=== PATIENT | male | born 1945 | race Caucasian/White ===

== ENCOUNTER 2016-09-20 08:00 | Outpatient (CLI) | payer MEDICARE, OTHER | END 2016-09-20 08:01 | disposition home or self-care (01) | DX: I48.91 Unspecified atrial fibrillation (principal); Z79.01 Long term (current) use of anticoagulants ==

== ENCOUNTER 2016-10-07 08:00 | Outpatient (CLI) | payer MEDICARE, OTHER | END 2016-10-07 08:01 | disposition home or self-care (01) | DX: E11.9 Type 2 diabetes mellitus without complications (principal) ==

== ENCOUNTER 2016-10-29 11:00 | Outpatient (CLI) | payer MEDICARE, OTHER | END 2016-10-29 11:01 | disposition home or self-care (01) | DX: I48.91 Unspecified atrial fibrillation (principal); Z79.01 Long term (current) use of anticoagulants ==

== ENCOUNTER 2016-11-25 14:39 | Outpatient (CLI) | payer MEDICARE, OTHER | END 2016-11-25 14:40 | disposition home or self-care (01) | DX: I48.91 Unspecified atrial fibrillation (principal); Z79.01 Long term (current) use of anticoagulants ==

== ENCOUNTER 2016-12-23 08:00 | Outpatient (CLI) | payer MEDICARE, OTHER | END 2016-12-23 08:01 | disposition home or self-care (01) | DX: I48.91 Unspecified atrial fibrillation (principal); Z79.01 Long term (current) use of anticoagulants ==

== ENCOUNTER 2017-01-20 08:00 | Outpatient (CLI) | payer MEDICARE, OTHER | END 2017-01-20 23:59 | LOC: LAB.N 08:00 | PROVIDERS: ATTEND Internal Medicine | DX: I48.91 Unspecified atrial fibrillation (principal); Z79.01 Long term (current) use of anticoagulants | CPT/HCPCS: 85610 ==

== ENCOUNTER 2017-02-17 13:55 | Outpatient (CLI) | payer MEDICARE, OTHER | END 2017-02-17 13:56 | LOC: LAB.N 13:55 | PROVIDERS: ATTEND Internal Medicine | DX: I48.91 Unspecified atrial fibrillation (principal) | CPT/HCPCS: 85610 ==

== ENCOUNTER 2017-03-17 08:00 | Outpatient (CLI) | payer MEDICARE, OTHER | END 2017-03-17 08:01 | LOC: LAB.N 08:00 | PROVIDERS: ATTEND Internal Medicine | DX: I48.91 Unspecified atrial fibrillation (principal) | CPT/HCPCS: 85610 ==

== ENCOUNTER 2017-04-18 08:00 | Outpatient (CLI) | payer MEDICARE, OTHER ==
[2017-04-18 20:09] LABS: HEMOGLOBIN A1C 0.84 g/dL
== END 2017-04-18 08:01 | disposition home or self-care (01) ==
LOC: LAB.N 08:00
PROVIDERS: ATTEND Internal Medicine
DX: I48.91 Unspecified atrial fibrillation (principal)
CPT/HCPCS: 36415; 83036; 85610

== ENCOUNTER 2017-05-20 08:00 | Outpatient (CLI) | payer MEDICARE, OTHER | END 2017-05-20 08:01 | disposition home or self-care (01) | LOC: LAB.N 08:00 | PROVIDERS: ATTEND Internal Medicine | DX: I48.91 Unspecified atrial fibrillation (principal); Z79.01 Long term (current) use of anticoagulants | CPT/HCPCS: 85610 ==

== ENCOUNTER 2017-06-09 13:31 | Outpatient (CLI) | payer MEDICARE, OTHER | END 2017-06-09 13:32 | LOC: LAB.N 13:31 | PROVIDERS: ATTEND Internal Medicine | DX: I48.91 Unspecified atrial fibrillation (principal); Z79.01 Long term (current) use of anticoagulants | CPT/HCPCS: 85610 ==

== ENCOUNTER 2017-06-23 11:56 | Outpatient (CLI) | payer MEDICARE, OTHER ==
[2017-06-23 12:32] LABS: ALBUMIN/GLOBULIN RATIO 1.3 (1.0-2.2); BILIRUBIN,TOTAL 1.5 mg/dL (0.2-1.0); BUN - BLOOD UREA NITROGEN 17 mg/dL (6-20); CALCIUM 9.4 mg/dL (8.5-10.3); CARBON DIOXIDE - CO2 26 mmol/L (21-32); CHLORIDE 95 mmol/L (101-111); CREATININE 0.9 mg/dL (0.6-1.2); GFR - MDRD 83 (>89); GLUCOSE 142 mg/dL (70-100); POTASSIUM 3.6 mmol/L (3.5-5.0); SODIUM 133 mmol/L (135-145); TOTAL PROTEIN 7.7 g/dL (6.7-8.2)
[2017-06-23 12:38] LABS: PT - PROTHROMBIN TIME 23.1 secs (9.9-12.6)
--- NOTE | 2017-06-23 14:34 | CT Report ---
CT BRAIN WITHOUT CONTRAST: 06/23/2017 CLINICAL INDICATION: Headache, anticoagulation therapy. COMPARISON: 05/10/2013 TECHNIQUE: Axial CT images of the brain were obtained without intravenous contrast. FINDINGS: The ventricles and sulci demonstrate mild symmetric enlargement, compatible with atrophy. The basilar cisterns are patent. There is no evidence of intracranial hemorrhage, mass effect, or m idline shift. The visualized orbital contents and paranasal sinuses are unremarkable. IMPRESSION: MILD ATROPHY. NO EVIDENCE OF HEMORRHAGE OR MASS EFFECT. In accordance with CT protocol optimization, one or more of the following dose reduction techniques w ere utilized for this exam: automated exposure control, adjustment of mA and/or KV based on patient size, or use of iterative reconstructive technique. JOB #: [id number] EXT JOB #:[id number]
== END 2017-06-23 11:57 | disposition home or self-care (01) ==
LOC: DI 11:56
PROVIDERS: ATTEND Physician Assistant Medical
DX: G31.9 Degenerative disease of nervous system, unspecified (principal); R51 Headache; Z79.01 Long term (current) use of anticoagulants
CPT/HCPCS: 36415; 70450; 80053; 85610; 85651; 86140

== ENCOUNTER 2017-08-16 08:00 | Outpatient (CLI) | payer MEDICARE, OTHER | END 2017-08-16 08:01 | disposition home or self-care (01) | LOC: LAB.N 08:00 | PROVIDERS: ATTEND Internal Medicine | DX: E78.5 Hyperlipidemia, unspecified (principal); I48.91 Unspecified atrial fibrillation | CPT/HCPCS: 85610 ==

== ENCOUNTER 2017-08-16 10:05 | Outpatient (CLI) | payer MEDICARE, OTHER | END 2017-08-16 10:06 | disposition home or self-care (01) | LOC: SC 10:05 | PROVIDERS: ATTEND Internal Medicine Pulmonary Disease | DX: G47.33 Obstructive sleep apnea (adult) (pediatric) (principal); I48.91 Unspecified atrial fibrillation; E78.5 Hyperlipidemia, unspecified | CPT/HCPCS: 85610; 99213; G0463; 99212 ==

== ENCOUNTER 2017-08-17 14:14 | Outpatient (CLI) | payer MEDICARE, OTHER ==
[2017-08-17 13:57] LABS: BASOPHILS # (AUTO) 0.1 10^3/uL (0.0-0.1); BASOPHILS % (AUTO) 1.2 %; EOSINOPHILS % (AUTO) 0.5 %; HCT - HEMATOCRIT 43.9 % (42.0-52.0); HGB - HEMOGLOBIN 14.9 g/dL (14.0-18.0); LYMPHOCYTES # (AUTO) 2.1 10^3/uL (1.5-3.5); MEAN CORPUSCULAR HEMOGLOBIN 30.8 pg (27.0-31.0); MEAN CORPUSCULAR VOLUME 90.6 fL (80.0-94.0); MEAN PLATELET VOLUME 8.7 fL (7.4-11.4); MONOCYTES # (AUTO) 0.7 10^3/uL (0.0-1.0); MONOCYTES % (AUTO) 11.3 %; NEUTROPHILS # (AUTO) 3.5 10^3/uL (1.5-6.6); NUCLEATED RED BLOOD CELLS AUTO 0.1 /100WBC; RED BLOOD COUNT 4.85 10^6/uL (4.70-6.10); RED CELL DISTRIBUTION WIDTH 13.9 % (12.0-15.0); UNCORRECTED WHITE BLOOD COUNT 6.4 x10^3/uL; WHITE BLOOD COUNT 6.4 x10^3/uL (4.8-10.8)
[2017-08-17 14:19] LABS: HEMOGLOBIN A1C 0.85 g/dL
[2017-08-17 16:27] LABS: CHOL/HDL RATIO 2.3 (<5.0); CHOLESTEROL 135 mg/dL; HDL CHOLESTEROL 60 mg/dL; TRIGLYCERIDES 71 mg/dL; URIC ACID 6.1 mg/dL (2.6-7.2); VLDL CHOLESTEROL 14 mg/dL
== END 2017-08-17 14:15 | disposition home or self-care (01) ==
LOC: LAB.N 14:14
PROVIDERS: ATTEND Internal Medicine
DX: M10.9 Gout, unspecified (principal); E78.5 Hyperlipidemia, unspecified; E11.9 Type 2 diabetes mellitus without complications
CPT/HCPCS: 36415; 80061; 83036; 84550; 85025; 85651; 86140

== ENCOUNTER 2017-09-19 09:22 | Outpatient (CLI) | payer MEDICARE, OTHER | END 2017-09-19 09:23 | disposition home or self-care (01) | LOC: SC 09:22 | PROVIDERS: ATTEND Internal Medicine Pulmonary Disease | DX: G47.33 Obstructive sleep apnea (adult) (pediatric) (principal); I48.91 Unspecified atrial fibrillation; Z79.01 Long term (current) use of anticoagulants | CPT/HCPCS: 99213; G0463; 85610; 99212 ==

== ENCOUNTER 2017-09-19 10:38 | Outpatient (CLI) | payer MEDICARE, OTHER | END 2017-09-19 10:39 | disposition home or self-care (01) | LOC: LAB.N 10:38 | PROVIDERS: ATTEND Internal Medicine | DX: I48.91 Unspecified atrial fibrillation (principal); Z79.01 Long term (current) use of anticoagulants | CPT/HCPCS: 85610 ==

== ENCOUNTER 2017-10-03 10:53 | Outpatient (CLI) | payer MEDICARE, OTHER | END 2017-10-03 10:54 | disposition home or self-care (01) | LOC: LAB.N 10:53 | PROVIDERS: ATTEND Internal Medicine | DX: I48.91 Unspecified atrial fibrillation (principal); Z79.01 Long term (current) use of anticoagulants | CPT/HCPCS: 85610 ==

== ENCOUNTER 2017-11-03 14:57 | Outpatient (CLI) | payer MEDICARE, OTHER | END 2017-11-03 14:58 | disposition home or self-care (01) | LOC: LAB.N 14:57 | PROVIDERS: ATTEND Internal Medicine | DX: I48.91 Unspecified atrial fibrillation (principal); Z79.01 Long term (current) use of anticoagulants | CPT/HCPCS: 85610 ==

== ENCOUNTER 2017-12-08 08:00 | Outpatient (CLI) | payer MEDICARE, OTHER ==
[2017-12-08 19:26] LABS: HEMOGLOBIN A1C 0.83 g/dL; HEMOGLOBIN A1C % 6.9 % (4.6-6.2)
== END 2017-12-08 08:01 ==
LOC: LAB.N 08:00
PROVIDERS: ATTEND Internal Medicine
DX: E11.9 Type 2 diabetes mellitus without complications (principal)
CPT/HCPCS: 36415; 83036

== ENCOUNTER 2017-12-12 23:16 | Outpatient (CLI) | payer MEDICARE, OTHER | END 2017-12-12 23:17 | disposition home or self-care (01) | LOC: LAB.N 23:16 | PROVIDERS: ATTEND Internal Medicine | DX: I48.91 Unspecified atrial fibrillation (principal); Z79.01 Long term (current) use of anticoagulants | CPT/HCPCS: 85610 ==

== ENCOUNTER 2017-12-19 07:30 | Outpatient (CLI) | payer MEDICARE, OTHER ==
[2017-12-19] MEDS ORDERED: IOPAMIDOL-300 50 ML VIAL ONE (07:45)
[2017-12-19] MEDS ORDERED: IOPAMIDOL-300 100 ML VIAL ONE (07:45)
[2017-12-19 08:05] LABS: CREATININE 0.9 mg/dL (0.6-1.2)
--- NOTE | 2017-12-19 11:44 | CT Report ---
CT OF ABDOMEN AND PELVIS WITH CONTRAST: 12/19/2017 CLINICAL INDICATION: Left-sided pain, history of hernia repair. COMPARISON: 08/10/2016. TECHNIQUE: Axial CT images of the abdomen and pelvis were obtained with 100 mL Isovue 300 intravenously as well as oral contrast. FINDINGS: Limited evaluation of the lung bases demonstrates stable elevation of the left hemidiaphragm and changes of old granulomatous disease. ABDOMEN: The liver, spleen, pancreas, kidneys and adrenal glands are unremarkable. The gallbladder is not dilated. Duodenal diverticula are incidentally noted. No bowel dilatation, free gas, or free fluid is appreciated. No abdominal adenopathy is seen. PELVIS: Postoperative changes are noted in left inguinal canal. A right-sided Hutch diverticulum is noted arising from the urinary bladder, stable. Sigmoid diverticulosis is present, without CT evidence of diverticulitis. No pelvic adenopathy or free fluid is present. Osseous structures demonstrate degenerative changes. IMPRESSION: POSTOPERATIVE CHANGES IN THE LEFT INGUINAL CANAL, WITHOUT EVIDENCE OF RECURRENT HERNIA. DIVERTICULOSIS, WITHOUT CT EVIDENCE OF DIVERTICULITIS. NO EVIDENT ETIOLOGY FOR PATIENT'S LEFT LOWER QUADRANT PAIN. In accordance with CT protocol optimization, one or more of the following dose reduction techniques were utilized for this exam: automated exposure control, adjustment of mA and/or KV based on patient size, or use of iterative reconstructive technique. TD: 12/19/2017 11:43
[2017-12-19] MEDS ORDERED: IOPAMIDOL-300 100 ML VIAL IVP ONE (15:17)
[2017-12-19] MEDS ORDERED: IOPAMIDOL-300 50 ML VIAL PO ONE (15:17)
== END 2017-12-19 07:31 | disposition home or self-care (01) ==
LOC: LAB 07:30
PROVIDERS: ATTEND Surgery
DX: K57.90 Diverticulosis of intestine, part unspecified, without perforation or abscess without bleeding (principal)
CPT/HCPCS: 36415; 74177; 82565; Q9967

== ENCOUNTER 2018-01-11 07:49 | Outpatient (CLI) | payer MEDICARE, OTHER ==
--- NOTE | 2018-01-11 11:29 | MRI Report ---
EXAM: MRI LUMBAR SPINE WITHOUT CONTRAST EXAM DATE: 01/11/2018 09:22 AM. CLINICAL HISTORY: LEFT LOWER QUADRANT PAIN, LOW BACK PAIN. COMPARISON: CT abdomen and pelvis 12/19/2017 TECHNIQUE: Multiplanar, multisequence T1-weighted and fluid-sensitive sequences of the lumbar spine f rom T12 to S1 without contrast. Other: None. FINDINGS: Spinal Cord: The conus terminates at L1. The conus medullaris and cauda equina are unremarkable. Alignment: No scoliosis or spondylolisthesis. Bone Marrow: Five gax-vvp-hiaqsqx lumbar vertebral bodies are assumed. No gross fractures or bone les ions. No bone marrow edema. Disk Levels/Facets: T12-L1: Unremarkable. L1-L2: Unremarkable. L2-L3: Mild diffuse disk bulge. Yqrf-oy-icrtyinv bilateral facet arthropathy. No significant central canal or foraminal narrowing. L3-L4: Mild diffuse disk bulge. Xdcg-oj-snlihcrb bilateral facet arthropathy. No significant central canal narrowing. Mild bilateral foraminal narrowing. L4-L5: Moderate diffuse disk bulge. Moderate to severe bilateral facet arthropathy. Pzuq-mr-idvtnscn central canal narrowing. Yibi-sx-pwxnetsh left and mild right foraminal narrowing. L5-S1: Moderate to severe disk height loss. Moderate diffuse disk bulge. Mild bilateral facet arthrop athy. No significant central canal narrowing. Moderate right and mild left foraminal narrowing. Mild right lateral recess narrowing with mild mass effect on traversing right S1 nerve. Musculature: Normal. No edema or fatty atrophy. Other: The partially visualized retroperitoneum is unremarkable. IMPRESSION: 1. Mild degenerative spondylosis involving levels L2-L3 through L5-S1, as detailed above and summariz ed below. No evidence of acute fracture or malalignment. No cord signal abnormality. No bone marrow e sherrie. 2. L3-L4 level demonstrates no significant central canal narrowing. Mild bilateral foraminal narrowin g. 3. L4-L5 level demonstrates llsm-hq-blthntxv central canal narrowing. Igvd-pt-yscajbsb left and mild right foraminal narrowing. 4. L5-S1 level demonstrates no significant central canal narrowing. Moderate right and mild left fora ramon narrowing. Mild right lateral recess narrowing with mild mass effect on traversing right S1 ner ve. 5. No significant central canal or foraminal narrowing at remaining lumbar levels. Comment: The following findings are so common in adults without low back pain that while we report th eir presence, they must be interpreted with caution and in the context of the clinical situation. (Re heath Dawn et al, Spine 2001) Prevalence of findings in patients without low back pain: Disk degeneration (any evidence): 92% Disk desiccation/T2 signal loss: 83% Disk height loss: 56% Disk bulge: 64% Disk protrusion: 32% Annular tear/high intensity zone: 38% [facility] Referring Provider Line: [phone] SITE ID: [id number]
== END 2018-01-11 07:50 | disposition home or self-care (01) ==
LOC: DI 07:49
PROVIDERS: ATTEND Internal Medicine
DX: M54.5 Low back pain (principal); M47.816 Spondylosis without myelopathy or radiculopathy, lumbar region; M47.817 Spondylosis without myelopathy or radiculopathy, lumbosacral region; R10.32 Left lower quadrant pain
CPT/HCPCS: 72148

== ENCOUNTER 2018-01-13 08:00 | Outpatient (CLI) | payer MEDICARE, OTHER | END 2018-01-13 08:01 | disposition home or self-care (01) | LOC: LAB.N 08:00 | PROVIDERS: ATTEND Internal Medicine | DX: I48.91 Unspecified atrial fibrillation (principal); Z79.01 Long term (current) use of anticoagulants | CPT/HCPCS: 85610 ==

== ENCOUNTER 2018-02-13 13:21 | Outpatient (CLI) | payer MEDICARE, OTHER | END 2018-02-13 13:22 | disposition home or self-care (01) | LOC: LAB.N 13:21 | PROVIDERS: ATTEND Internal Medicine | DX: I48.91 Unspecified atrial fibrillation (principal); Z79.01 Long term (current) use of anticoagulants | CPT/HCPCS: 85610 ==

== ENCOUNTER 2018-03-20 09:55 | Outpatient (CLI) | payer MEDICARE, OTHER | END 2018-03-20 09:56 | disposition home or self-care (01) | LOC: LAB.N 09:55 | PROVIDERS: ATTEND Internal Medicine | DX: I48.91 Unspecified atrial fibrillation (principal); Z79.01 Long term (current) use of anticoagulants | CPT/HCPCS: 85610 ==

== ENCOUNTER 2018-04-11 13:26 | Outpatient (CLI) | payer MEDICARE, OTHER | END 2018-04-11 13:27 | disposition home or self-care (01) | LOC: LAB.N 13:26 | PROVIDERS: ATTEND Internal Medicine | DX: I48.91 Unspecified atrial fibrillation (principal); Z79.01 Long term (current) use of anticoagulants | CPT/HCPCS: 85610 ==

== ENCOUNTER 2018-05-09 13:59 | Outpatient (CLI) | payer MEDICARE, OTHER | END 2018-05-09 14:00 | disposition home or self-care (01) | LOC: LAB.N 13:59 | PROVIDERS: ATTEND Internal Medicine | DX: I48.91 Unspecified atrial fibrillation (principal); Z79.01 Long term (current) use of anticoagulants | CPT/HCPCS: 85610 ==

== ENCOUNTER 2018-05-23 08:00 | Outpatient (CLI) | payer MEDICARE, OTHER | END 2018-05-23 08:01 | LOC: LAB.N 08:00 | PROVIDERS: ATTEND Internal Medicine | DX: I48.91 Unspecified atrial fibrillation (principal); Z79.01 Long term (current) use of anticoagulants | CPT/HCPCS: 85610 ==

== ENCOUNTER 2018-06-22 15:03 | Outpatient (CLI) | payer MEDICARE, OTHER | END 2018-06-22 15:04 | LOC: LAB.N 15:03 | PROVIDERS: ATTEND Internal Medicine | DX: I48.91 Unspecified atrial fibrillation (principal); Z79.01 Long term (current) use of anticoagulants | CPT/HCPCS: 85610 ==

== ENCOUNTER 2018-07-06 11:15 | Outpatient (CLI) | payer MEDICARE, OTHER | END 2018-07-06 11:16 | disposition home or self-care (01) | LOC: LAB.N 11:15 | PROVIDERS: ATTEND Internal Medicine | DX: I48.91 Unspecified atrial fibrillation (principal); Z79.01 Long term (current) use of anticoagulants | CPT/HCPCS: 85610 ==

== ENCOUNTER 2018-08-07 08:00 | Outpatient (CLI) | payer MEDICARE, OTHER | END 2018-08-07 23:59 | disposition home or self-care (01) | LOC: LAB.N 08:00 | PROVIDERS: ATTEND Internal Medicine | DX: I48.91 Unspecified atrial fibrillation (principal); Z79.01 Long term (current) use of anticoagulants | CPT/HCPCS: 85610 ==

== ENCOUNTER 2018-08-14 10:06 | Outpatient (CLI) | payer MEDICARE, OTHER ==
--- NOTE | 2018-08-14 14:45 | XRAY Report ---
Reason: CHEST WALL PAIN,ACUTE Procedure Date: 08/14/2018 Accession Number: [id number] / [id number] Procedure: XR - Thoracic Spine 2 View CPT Code: FULL RESULT: EXAM: THORACIC SPINE RADIOGRAPHY EXAM DATE: 08/14/2018 11:48 AM. CLINICAL HISTORY: Chest wall pain, acute. COMPARISON: XR THORACIC SPINE 3 VIEWS 06/05/2010 10:34 AM CHEST 2 VIEW PA/LAT 12/10/2014 10:22 AM. TECHNIQUE: 2 views. FINDINGS: Alignment: There is a degenerative upper thoracic kyphosis which is only minimally progressed compared to 2014. No listhesis. Bones: No acute fractures or bone lesions. Lungs appear qualitatively osteopenic. Disks: There is multilevel loss of disk space height with marginal osteophytosis. Soft Tissues: Unchanged marked elevation of the left hemidiaphragm with shift of the cardiomediastinal silhouette to the right. IMPRESSION: Mild progression of previously seen degenerative thoracic kyphosis. No single level compression fracture or listhesis. [facility]
== END 2018-08-14 10:07 | disposition home or self-care (01) ==
LOC: DI 10:06
PROVIDERS: ATTEND Internal Medicine
DX: M40.294 Other kyphosis, thoracic region (principal); R07.89 Other chest pain
CPT/HCPCS: 72070

== ENCOUNTER 2018-09-07 14:25 | Outpatient (CLI) | payer MEDICARE, OTHER | END 2018-09-07 23:59 | disposition home or self-care (01) | LOC: LAB.N 14:25 | PROVIDERS: ATTEND Internal Medicine | DX: I48.91 Unspecified atrial fibrillation (principal); Z79.01 Long term (current) use of anticoagulants | CPT/HCPCS: 85610 ==

== ENCOUNTER 2018-09-26 08:00 | Outpatient (CLI) | payer MEDICARE, OTHER ==
[2018-09-26 14:04] LABS: BASOPHILS # (AUTO) 0.1 10^3/uL (0.0-0.1); BASOPHILS % (AUTO) 0.9 %; EOSINOPHILS % (AUTO) 0.3 %; HGB - HEMOGLOBIN 14.9 g/dL (14.0-18.0); LYMPHOCYTES # (AUTO) 2.2 10^3/uL (1.5-3.5); LYMPHOCYTES % (AUTO) 35.9 %; MEAN CORPUSCULAR HEMOGLOBIN 31.5 pg (27.0-31.0); MEAN CORPUSCULAR HGB CONC 34.6 g/dL (32.0-36.0); MEAN CORPUSCULAR VOLUME 90.9 fL (80.0-94.0); MEAN PLATELET VOLUME 8.6 fL (7.4-11.4); MONOCYTES # (AUTO) 0.7 10^3/uL (0.0-1.0); MONOCYTES % (AUTO) 11.9 %; NEUTROPHILS # (AUTO) 3.1 10^3/uL (1.5-6.6); PLT - PLATELET COUNT 222 10^3/uL (130-450); RED BLOOD COUNT 4.73 10^6/uL (4.70-6.10); RED CELL DISTRIBUTION WIDTH 13.7 % (12.0-15.0)
[2018-09-26 14:27] LABS: ALBUMIN 4.6 g/dL (3.2-5.5); ALBUMIN/GLOBULIN RATIO 1.4 (1.0-2.2); ALKALINE PHOSPHATASE 74 IU/L (42-121); ALT ALANINE AMINOTRANSFERASE 30 IU/L (10-60); AST ASPARTATE AMINOTRANSFERASE 31 IU/L (10-42); BILIRUBIN,TOTAL 2.2 mg/dL (0.2-1.0); BUN - BLOOD UREA NITROGEN 12 mg/dL (6-20); CALCIUM 9.4 mg/dL (8.5-10.3); CARBON DIOXIDE - CO2 30 mmol/L (21-32); CHLORIDE 97 mmol/L (101-111); CHOL/HDL RATIO 2.5 (<5.0); CHOLESTEROL 149 mg/dL; CREATININE 0.8 mg/dL (0.6-1.2); GFR - MDRD 95 (>89); GLUCOSE 117 mg/dL (70-100); HDL CHOLESTEROL 60 mg/dL; LDL CHOLESTEROL,CALCULATED 77 mg/dL; LDL/HDL RATIO 1.3 (<3.6); SODIUM 135 mmol/L (135-145); TOTAL PROTEIN 7.9 g/dL (6.7-8.2); VLDL CHOLESTEROL 12 mg/dL
[2018-09-26 15:24] LABS: HB2 TOTAL 15.8 g/dL; HEMOGLOBIN A1C 0.79 g/dL; HEMOGLOBIN A1C % 6.7 % (4.6-6.2)
== END 2018-09-26 23:59 | disposition home or self-care (01) ==
LOC: LAB.N 08:00
PROVIDERS: ATTEND Internal Medicine
DX: E11.9 Type 2 diabetes mellitus without complications (principal); Z12.5 Encounter for screening for malignant neoplasm of prostate; M81.0 Age-related osteoporosis without current pathological fracture; M10.9 Gout, unspecified; E78.5 Hyperlipidemia, unspecified; I48.91 Unspecified atrial fibrillation; E87.1 Hypo-osmolality and hyponatremia; Z79.899 Other long term (current) drug therapy
CPT/HCPCS: 36415; 80053; 80061; 83036; 84443; 85025; G0103; 83721; 84153

== ENCOUNTER 2018-10-02 13:21 | Outpatient (CLI) | payer MEDICARE, OTHER | END 2018-10-02 13:22 | disposition home or self-care (01) | LOC: SC 13:21 | PROVIDERS: ATTEND Internal Medicine Pulmonary Disease | DX: G47.33 Obstructive sleep apnea (adult) (pediatric) (principal) | CPT/HCPCS: 99213; G0463; 99212 ==

== ENCOUNTER 2018-10-18 08:00 | Outpatient (CLI) | payer MEDICARE, OTHER | END 2018-10-18 23:59 | disposition home or self-care (01) | LOC: LAB.N 08:00 | PROVIDERS: ATTEND Internal Medicine | DX: I48.91 Unspecified atrial fibrillation (principal); Z79.01 Long term (current) use of anticoagulants | CPT/HCPCS: 85610 ==

== ENCOUNTER 2018-11-01 08:00 | Outpatient (CLI) | payer MEDICARE, OTHER | END 2018-11-01 23:59 | disposition home or self-care (01) | LOC: LAB.N 08:00 | PROVIDERS: ATTEND Internal Medicine | DX: I48.91 Unspecified atrial fibrillation (principal); Z79.01 Long term (current) use of anticoagulants | CPT/HCPCS: 85610 ==

== ENCOUNTER 2019-01-01 08:00 | Outpatient (CLI) | payer MEDICARE, OTHER | END 2019-01-01 23:59 | disposition home or self-care (01) | LOC: LAB.N 08:00 | PROVIDERS: ATTEND Internal Medicine | DX: I48.91 Unspecified atrial fibrillation (principal); Z79.01 Long term (current) use of anticoagulants | CPT/HCPCS: 85610 ==

== ENCOUNTER 2019-01-31 14:20 | Outpatient (CLI) | payer MEDICARE, OTHER | END 2019-01-31 23:59 | disposition home or self-care (01) | LOC: LAB.N 14:20 | PROVIDERS: ATTEND Internal Medicine | DX: I48.91 Unspecified atrial fibrillation (principal); Z79.01 Long term (current) use of anticoagulants | CPT/HCPCS: 85610 ==

== ENCOUNTER 2019-02-07 08:00 | Outpatient (CLI) | payer MEDICARE, OTHER | END 2019-02-07 23:59 | disposition home or self-care (01) | LOC: LAB.WCP 08:00 | PROVIDERS: ATTEND Internal Medicine | DX: I48.91 Unspecified atrial fibrillation (principal); Z79.01 Long term (current) use of anticoagulants | CPT/HCPCS: 85610 ==

== ENCOUNTER 2019-02-09 10:48 | Outpatient (CLI) | payer MEDICARE, OTHER ==
--- NOTE | 2019-02-09 14:42 | XRAY Report ---
Reason: PARALYSIS OF DIAPHRAGM,BERYLLIOSIS Procedure Date: 02/09/2019 Accession Number: [id number] / [id number] Procedure: WCP - Chest 2 View X-Ray CPT Code: 41810 FULL RESULT: EXAM: CHEST RADIOGRAPHY EXAM DATE: 02/09/2019 10:57 AM. CLINICAL HISTORY: PARALYSIS OF Diaphragm, berylliosis. COMPARISON: THORACIC SPINE 2 VIEW 08/14/2018 11:39 AM CHEST 2 VIEW PA/LAT 12/10/2014 10:22 AM. TECHNIQUE: 2 views. FINDINGS: Lungs/Pleura: No focal opacities evident. No pleural effusion. No pneumothorax. Chronic elevated left hemidiaphragm with small left lung volume. Mediastinum: Shift of the heart and mediastinum towards the right. Heart size is enlarged. Other: Degenerative changes in the spine with mild kyphosis, compressions of mid thoracic vertebral bodies. IMPRESSION: 1. Chronic elevated left hemidiaphragm with small left lung volume. 2. No active cardiopulmonary disease [facility]
== END 2019-02-09 10:49 | disposition home or self-care (01) ==
LOC: DI.WCP 10:48
PROVIDERS: ATTEND Family Medicine
DX: J98.6 Disorders of diaphragm (principal); J63.2 Berylliosis
CPT/HCPCS: 71046

== ENCOUNTER 2019-02-14 11:08 | Outpatient (CLI) | payer MEDICARE, OTHER | END 2019-02-14 23:59 | disposition home or self-care (01) | LOC: LAB.N 11:08 | PROVIDERS: ATTEND Internal Medicine | DX: I48.91 Unspecified atrial fibrillation (principal); Z79.01 Long term (current) use of anticoagulants | CPT/HCPCS: 85610 ==

== ENCOUNTER 2019-02-21 08:00 | Outpatient (CLI) | payer MEDICARE, OTHER | END 2019-02-21 23:59 | disposition home or self-care (01) | LOC: LAB.N 08:00 | PROVIDERS: ATTEND Internal Medicine | DX: I48.91 Unspecified atrial fibrillation (principal); Z79.01 Long term (current) use of anticoagulants | CPT/HCPCS: 85610 ==

== ENCOUNTER 2019-02-26 08:00 | Outpatient (CLI) | payer MEDICARE, OTHER ==
[2019-02-26 14:11] LABS: ALBUMIN 4.2 g/dL (3.2-5.5); ALBUMIN/GLOBULIN RATIO 1.2 (1.0-2.2); ALKALINE PHOSPHATASE 69 IU/L (42-121); ALT ALANINE AMINOTRANSFERASE 28 IU/L (10-60); AST ASPARTATE AMINOTRANSFERASE 26 IU/L (10-42); BILIRUBIN,TOTAL 1.4 mg/dL (0.2-1.0); BUN - BLOOD UREA NITROGEN 11 mg/dL (6-20); CALCIUM 9.2 mg/dL (8.5-10.3); CARBON DIOXIDE - CO2 28 mmol/L (21-32); CHLORIDE 99 mmol/L (101-111); CHOL/HDL RATIO 2.6 (<5.0); CHOLESTEROL 147 mg/dL; CREATININE 0.8 mg/dL (0.6-1.2); GFR - MDRD 95 (>89); GLUCOSE 123 mg/dL (70-100); HDL CHOLESTEROL 56 mg/dL; LDL CHOLESTEROL,CALCULATED 75 mg/dL; LDL/HDL RATIO 1.3 (<3.6); SODIUM 135 mmol/L (135-145); TOTAL PROTEIN 7.6 g/dL (6.7-8.2); VLDL CHOLESTEROL 16 mg/dL
[2019-02-26 14:20] LABS: HB2 TOTAL 15.5 g/dL; HEMOGLOBIN A1C 0.81 g/dL; HEMOGLOBIN A1C % 6.9 % (4.6-6.2)
== END 2019-02-26 23:59 | disposition home or self-care (01) ==
LOC: LAB.N 08:00
PROVIDERS: ATTEND Internal Medicine
DX: E78.5 Hyperlipidemia, unspecified (principal); E11.9 Type 2 diabetes mellitus without complications
CPT/HCPCS: 36415; 80053; 80061; 83036; 83721

== ENCOUNTER 2019-03-09 11:12 | Outpatient (CLI) | payer MEDICARE, OTHER | END 2019-03-09 23:59 | disposition home or self-care (01) | LOC: LAB.N 11:12 | PROVIDERS: ATTEND Internal Medicine | DX: I48.91 Unspecified atrial fibrillation (principal); Z79.01 Long term (current) use of anticoagulants | CPT/HCPCS: 85610 ==

== ENCOUNTER 2019-03-20 08:00 | Outpatient (CLI) | payer MEDICARE, OTHER | END 2019-03-20 23:59 | disposition home or self-care (01) | LOC: LAB.WCP 08:00 | PROVIDERS: ATTEND Internal Medicine | DX: I48.91 Unspecified atrial fibrillation (principal); Z79.01 Long term (current) use of anticoagulants | CPT/HCPCS: 85610 ==

== ENCOUNTER 2019-04-04 08:00 | Outpatient (CLI) | payer MEDICARE, OTHER | END 2019-04-04 23:59 | disposition home or self-care (01) | LOC: LAB.N 08:00 | PROVIDERS: ATTEND Internal Medicine | DX: I48.91 Unspecified atrial fibrillation (principal); Z79.01 Long term (current) use of anticoagulants | CPT/HCPCS: 85610 ==

== ENCOUNTER 2019-05-07 11:32 | Outpatient (CLI) | payer MEDICARE, OTHER | END 2019-05-07 11:37 | disposition home or self-care (01) | LOC: LAB.N 11:32 | PROVIDERS: ATTEND Internal Medicine | DX: I48.91 Unspecified atrial fibrillation (principal) | CPT/HCPCS: 85610 ==

== ENCOUNTER 2019-05-21 08:00 | Outpatient (CLI) | payer MEDICARE, OTHER | END 2019-05-21 23:59 | disposition home or self-care (01) | LOC: LAB.N 08:00 | PROVIDERS: ATTEND Internal Medicine | DX: I48.91 Unspecified atrial fibrillation (principal) | CPT/HCPCS: 85610 ==

== ENCOUNTER 2019-06-19 08:00 | Outpatient (CLI) | payer MEDICARE, OTHER | END 2019-06-19 23:59 | disposition home or self-care (01) | LOC: LAB.N 08:00 | PROVIDERS: ATTEND Internal Medicine | DX: I48.91 Unspecified atrial fibrillation (principal) | CPT/HCPCS: 85610 ==

== ENCOUNTER 2019-07-04 08:00 | Outpatient (CLI) | payer MEDICARE, OTHER | END 2019-07-04 23:59 | disposition home or self-care (01) | LOC: LAB.N 08:00 | PROVIDERS: ATTEND Internal Medicine | DX: I48.91 Unspecified atrial fibrillation (principal) | CPT/HCPCS: 85610 ==

== ENCOUNTER 2019-08-01 11:10 | Outpatient (CLI) | payer MEDICARE, OTHER ==
[2019-08-01 13:04] LABS: BASOPHILS # (AUTO) 0.1 10^3/uL (0.0-0.1); BASOPHILS % (AUTO) 0.9 %; EOSINOPHILS % (AUTO) 0.5 %; HGB - HEMOGLOBIN 14.8 g/dL (14.0-18.0); LYMPHOCYTES # (AUTO) 1.8 10^3/uL (1.5-3.5); LYMPHOCYTES % (AUTO) 32.3 %; MEAN CORPUSCULAR HEMOGLOBIN 29.7 pg (27.0-31.0); MEAN CORPUSCULAR HGB CONC 32.7 g/dL (32.0-36.0); MEAN CORPUSCULAR VOLUME 90.8 fL (80.0-94.0); MEAN PLATELET VOLUME 10.6 fL (7.4-11.4); MONOCYTES # (AUTO) 0.7 10^3/uL (0.0-1.0); MONOCYTES % (AUTO) 12.8 %; NEUTROPHILS # (AUTO) 2.9 10^3/uL (1.5-6.6); NEUTROPHILS % (AUTO) 53.3 %; PLT - PLATELET COUNT 216 10^3/uL (130-450); RED BLOOD COUNT 4.99 10^6/uL (4.70-6.10); RED CELL DISTRIBUTION WIDTH 13.2 % (12.0-15.0); WHITE BLOOD COUNT 5.5 x10^3/uL (4.8-10.8)
[2019-08-01 16:07] LABS: ALBUMIN 4.2 g/dL (3.2-5.5); ALBUMIN/GLOBULIN RATIO 1.3 (1.0-2.2); ALKALINE PHOSPHATASE 70 IU/L (42-121); ALT ALANINE AMINOTRANSFERASE 27 IU/L (10-60); AST ASPARTATE AMINOTRANSFERASE 25 IU/L (10-42); BILIRUBIN,TOTAL 1.1 mg/dL (0.2-1.0); BUN - BLOOD UREA NITROGEN 13 mg/dL (6-20); CALCIUM 9.1 mg/dL (8.5-10.3); CARBON DIOXIDE - CO2 29 mmol/L (21-32); CHLORIDE 100 mmol/L (101-111); CREATININE 0.9 mg/dL (0.6-1.2); GFR - MDRD 83 (>89); GLUCOSE 155 mg/dL (70-100); SODIUM 137 mmol/L (135-145); TOTAL PROTEIN 7.5 g/dL (6.7-8.2)
[2019-08-01 16:59] LABS: CRP - C-REACTIVE PROTEIN < 1.0 mg/dL (0-1.0)
== END 2019-08-01 23:59 | disposition home or self-care (01) ==
LOC: LAB.N 11:10
PROVIDERS: ATTEND Internal Medicine
DX: J63.2 Berylliosis (principal); R51 Headache; I48.0 Paroxysmal atrial fibrillation
CPT/HCPCS: 36415; 80053; 85025; 85610; 85651; 86140

== ENCOUNTER 2022-08-27 13:38 | Outpatient (CLI) | payer MEDICARE, OTHER | END 2022-08-27 13:39 | disposition home or self-care (01) | LOC: LAB.N 13:38 | PROVIDERS: ATTEND Family Medicine | DX: I48.20 Chronic atrial fibrillation, unspecified (principal); Z79.01 Long term (current) use of anticoagulants | CPT/HCPCS: 36416; 85610 ==

== ENCOUNTER 2022-10-15 12:21 | Outpatient (CLI) | payer MEDICARE, OTHER | END 2022-10-15 12:22 | disposition home or self-care (01) | LOC: LAB.N 12:21 | PROVIDERS: ATTEND Family Medicine | DX: I48.20 Chronic atrial fibrillation, unspecified (principal); Z79.01 Long term (current) use of anticoagulants | CPT/HCPCS: 36415; 36416; 85610 ==

== ENCOUNTER 2022-11-26 15:16 | Outpatient (CLI) | payer MEDICARE, OTHER | END 2022-11-26 15:17 | disposition home or self-care (01) | LOC: LAB.N 15:16 | PROVIDERS: ATTEND Family Medicine | DX: I48.91 Unspecified atrial fibrillation (principal) | CPT/HCPCS: 36416; 85610 ==

== ENCOUNTER 2023-01-11 15:31 | Outpatient (CLI) | payer MEDICARE, OTHER ==
--- NOTE | 2023-01-11 12:56 | Sleep Patient Instructions ---
Sleep Center Visit Summary - Patient Visit Information Reason for Visit: Initial visit for establishment of care for CPAP therapy with patient established on CPAP. - Patient Instructions Additional Instructions: You will continue with CPAP therapy with pressure set at [] cmH2O. A supply prescription will be updated with your DME. We encourage you to continue to try to lose weight. Please follow up with the sleep care office in 1 year. - Clinic Information Contact: [facility] [address] [place] [address] [email or web address] T: [phone]
[2023-01-11 16:36] VITALS: BP 118/64
--- NOTE | 2023-01-11 16:36 | SLEEP CARE CONSULTATION ---
Information from patient questionnaire entered by Adelaida Carroll. I have reviewed and concur with the information entered by Adelaida Carroll. This document represents the service I personally performed and the decisions made by me, Yolanda Lake ARNP. History of Present Illness Service Date and Time: 01/11/2023 1531 Reason for Visit: New patient, Previously diagnosed sleep apnea, sleep apnea on CPAP therapy Chief Complaint: reports: Other (NEW PT F/U) Date of Onset: 15-20YRS+ Usual bedtime: 930PM Time it takes to fall asleep: 10-60MINS Snores at night: Yes Observed to quit breathing while asleep: No Sleeps alone due to snoring: No Number of times waking at night: 1-2 Reasons for waking at night: reports: Bathroom, Other (UNKNOWN) Toss, Turn, or Twitch while sleeping: No Recalls having dreams: Yes Usually gets out of bed at: 6-630AM Feels refreshed in the morning: Yes Morning headache: No Sleepy or fatigued during the day: No Ever fallen asleep while driving: No Takes day naps: No Dreams during day naps: No Prior sleep studies: Yes Year and Where: 20+YRS [facility] Additional HPI information: MARTHA FIGUEREDO was previously diagnosed to have unknown, AHI unknown, obstructive sleep apnea-hypopnea syndrome and comes in today to establish care for BIPAP therapy. - Parasomnia Symptoms Ever been unable to move upon waking from sleep: No Walks in sleep: No Talks in sleep: No Ever acted out dreams in sleep: No Ever felt weak in the knees when startled or emotional: No Bothered by creepy, crawly, restless sensations in legs: No Problems with memory or concentration: No CPAP Compliance Data - Data Reviewed with Patient Average duration of nightly device use: 8 hours 45 minutes Compliance rate %: 96 (86/90 days used) Current pressure setting (cmH2O): 14/6 with 4 cmH2O support Average residual AHI: 2.4 Central apnea: 0.1 Obstructive apnea: 1.5 Hypopnea: 0.6 Average large leak: 6.4 lpm Compliance data discussion: He has a [employer]med AirCurve 10 V/Auto Bipap machine that was set up in 07/2022. He is getting supplies from [employer] without any issues. He is using a hybrid full face mask. He has a backup mask. Subjective Patient concerns: reports: mask leak noise (occasional). denies: aerophagia, mask discomfort, air blowing in eyes, condensation in mask/hose, nasal congestion, dry mouth, nose, throat, epistaxis Observed to snore while using device: No Current pressure setting perceived as: comfortable On therapy, patient: reports: sleeping better, awakening more refreshed, being more awake and alert during the day, more rested overall. denies: drowsiness while driving Initial [place] Sleepiness Scale score: 2 (01/11/23) Past Medical History Past Medical History: reports: Hypertension, Diabetes, Coronary Heart Disease, Gout, Arrythmia, Other (Chronic Beryllium disease, paralizyed left diaphragm) Social History The patient's occupation is a RE. Patient is and lives in [place]. Have you smoked in the past 12 months: No Alcohol use: Yes Alcohol amount and frequency: 1-2 DRINKS 2-3 TIMES A WEEK Caffeine use: Yes Caffeine amount and frequency: 1.5 CUPS OF COFFEE DAILY Family History Family history of sleep disordered breathing: No Allergies and Home Medications Known drug allergies: Yes (SULFA) Drug allergies reviewed: Yes Home medication list reviewed: Yes (see updated list in EMR) Allergy and home medication list: Allergies Sulfa (Sulfonamide Antibiotics) Allergy (Unknown, Verified 01/10/23 09:32) unknown Review of Systems Cardiovascular: reports: high blood pressure, irregular heart rate or pulse Respiratory: reports: wheeze Urinary: reports: frequency Ear/Nose/Throat: reports: hoarseness, wisdom teeth removed Endocrine: reports: increased urination. denies: thyroid disease Immunologic: reports: itching Physical Exam Vital signs obtained and entered by: ADELAIDA Orosco MA Blood Pressure: 118/64 (LEFT ARM) Cuff size: regular Heart Rate: 102 O2 Saturation: 96 Height: 5 ft 11 in Weight: 210 lb 12.8 oz Body Mass Index: 29.4 BMI Classification: Overweight Neck circumference: 16.5 Heart: irregular rhythm Lungs: clear bilaterally Impression and Plan 1. Obstructive Sleep Apnea-Hypopnea Syndrome, unknown, with good treatment compliance and good apnea control. On BIPAP therapy, the patient has better sleep quality and is more rested overall. We do not yet have a copy of his last sleep study to verify diagnosis and severity. We have requested it from his last sleep provider and are waiting to receive it. Patient has significant improvement of their sleep apnea and is satisfied with current CPAP therapy. Patient denies problems with oral dryness, nasal congestion, epistaxis, skin irritation or aerophagia. Patient's apnea severity and rationale for treatment to reduce apnea, improve sleep quality and reduce cardiovascular and cerebrovascular events was reviewed. I also reviewed the benefit of consistent device use of BIPAP for hypertension, cardiac disease, arrhythmia and diabetes. 2. Overweight, unspecified. Currently patients BMI is 29.4. Obesity increases the risk of apnea, BIPAP pressure requirements and overall health risks especially cardiovascular and diabetes. Thus patient is advised to lose weight. * Continue BIPAP pressure at 14/6 cmH2O with 4 cmH2O pressure support * Update supplies after obtaining copy of sleep study * Notify me if snoring with mask or feeling that the pressure is too much or too little * Attempt to lose weight * Call this office if any problems using BIPAP * Return for follow up in 1 year, or sooner if concerns arise Counseling Topics: Spare mask, Weight loss health impact Visit Type: In Office Time Spent with Patient (minutes): 27 Provider Statement: I spent 100% of the Face to Face Visit with the patient with greater than 50% spent counseling the patient and coordination of care.
== END 2023-01-11 15:32 | disposition home or self-care (01) ==
LOC: SC 15:31
PROVIDERS: ATTEND Nurse Practitioner Family
DX: G47.33 Obstructive sleep apnea (adult) (pediatric) (principal); E66.3 Overweight; Z68.29 Body mass index [BMI] 29.0-29.9, adult
CPT/HCPCS: 99202; G0463; 99212